=== PATIENT | female | born 1960 | race Caucasian/White ===

== ENCOUNTER 2019-11-07 13:53 | Emergency (ER) | payer OTHER ==
[~2019-11-07] VITALS: Ht 165.1 cm; Wt 77.1 kg
[2019-11-07] MEDS ORDERED: DEXAMETHASONE SOD PHOSPHATE 4 MG INJ IV ONE (14:30)
[2019-11-07] MEDS ORDERED: IV NORMAL SALINE 1000 ML BAG IV ONE (14:30)
[2019-11-07] MEDS ORDERED: KETOROLAC TROMETHAMINE 30 MG INJ IVP ONE (14:30)
[2019-11-07] MEDS ORDERED: ACETAMINOPHEN ES 500 MG TABLET PO ONE (14:30)
[2019-11-07] MEDS ORDERED: KETOROLAC TROMETHAMINE 30 MG INJ ONE (14:35)
[2019-11-07] MEDS ORDERED: ACETAMINOPHEN ES 500 MG TABLET ONE (14:35)
[2019-11-07] MEDS ORDERED: DEXAMETHASONE SOD PHOSPHATE 10 MG INJ ONE (14:36)
[2019-11-07 14:42] LABS: *BILIRUBIN,URIN NEGATIVE (NEGATIVE); *BLOOD, URINE NEGATIVE (NEGATIVE); *CLARITY,URINE CLEAR (CLEAR); *COLOR,URINE YELLOW (YELLOW); *KETONES,URINE NEGATIVE (NEGATIVE); *UROBILINOGEN,URINE 0.2 E.U./dl (NORMAL); LEUKOCYTE ESTERASE ,URINE NEGATIVE (NEGATIVE); NITRITE, URINE NEGATIVE (NEGATIVE); PH,URINE 5.5 (5.0-8.0); UGLUCOSE NEGATIVE (NEGATIVE)
--- NOTE | 2019-11-07 15:12 | NUR ---
Patient discharged to home in stable condition. Written and verbal after care instructions given. Patient verbalizes understanding of instructions. Stressed follow up or return to ER for worsening s/s.pt says her pain down to toleralable level.pt walks in steady gait.
[2019-11-07 15:13] VITALS: BP 129/81
== END 2019-11-07 15:14 | disposition home or self-care (01) ==
LOC: ER 13:53
DX: S39.012A Strain of muscle, fascia and tendon of lower back, initial encounter (principal); X50.1XXA Overexertion from prolonged static or awkward postures, initial encounter; Y93.89 Activity, other specified; Y92.239 Unspecified place in hospital as the place of occurrence of the external cause; Y99.0 Civilian activity done for income or pay; M51.26 Other intervertebral disc displacement, lumbar region; M51.37 Other intervertebral disc degeneration, lumbosacral region
CPT/HCPCS: 72100; 81001; 96374; 96375; 99284; J1100; J1885; A4663; A9150; J7030

== ENCOUNTER 2021-03-23 17:15 | Emergency (ER) | payer BC, OTHER ==
[~2021-03-23] VITALS: Ht 165.1 cm; Wt 77.1 kg
[2021-03-23] MEDS ORDERED: IV NORMAL SALINE 100 ML BAG IV ONE (17:30)
[2021-03-23] MEDS ORDERED: ONDANSETRON 4 MG/2 ML VIAL IV ONE (17:30)
[2021-03-23] MEDS ORDERED: MECLIZINE HCL 25 MG TABLET PO ONE (17:30)
[2021-03-23 17:37] LABS: MEAN CORPUSCULAR VOLUME 91.7 fL (75.5-95.3); PLATELET COUNT (AUTO) 296 K/uL (179-408)
[2021-03-23 17:43] LABS: CREATININE 0.7 mg/dL (0.6-1.3); POTASSIUM 3.8 mmol/L (3.5-5.1)
[2021-03-23 17:54] LABS: BILIRUBIN,TOTAL 0.3 mg/dL (0.2-1.0); TOTAL PROTEIN, SERUM 7.8 g/dL (6.4-8.2)
--- NOTE | 2021-03-23 17:55 | NUR ---
Pt taken to CT
[2021-03-23] MEDS ORDERED: ONDANSETRON 4 MG/2 ML VIAL ONE (17:58)
[2021-03-23] MEDS ORDERED: MECLIZINE HCL 25 MG TABLET ONE (17:58)
[2021-03-23] MEDS ORDERED: MECL-159 PO (18:44)
[2021-03-23] MEDS ORDERED: METOCLOPRAMIDE HCL 10 MG/2 ML VIAL ONE (18:44)
[2021-03-23] MEDS ORDERED: METOCLOPRAMIDE HCL 10 MG/2 ML VIAL IV ONE (18:45)
--- NOTE | 2021-03-23 19:32 | NUR ---
pt a/o denies pain, sob or dizziness.
[2021-03-23 20:05] VITALS: BP 118/71
== END 2021-03-23 20:06 | disposition home or self-care (01) ==
LOC: ER 17:17
DX: H81.10 Benign paroxysmal vertigo, unspecified ear (principal); E78.5 Hyperlipidemia, unspecified; R94.31 Abnormal electrocardiogram [ECG] [EKG]
CPT/HCPCS: 36415; 70450; 71045; 80053; 83690; 84484; 85025; 93005; 96374; 96375; 99285; J2405; J2765; 70030-TC; A4663; J7030; J8597

== ENCOUNTER 2025-01-09 07:06 | Day surgery (SDC) | payer BC, OTHER ==
[~2025-01-09 07:06] MED LIST: MECL-159 PO
[2025-01-09 08:19] LABS: PLATELET COUNT (AUTO) 300 K/uL (179-408); RED BLOOD CELL COUNT(AUTO) 4.77 MIL/uL (3.63-4.92); RED CELL DISTRIBUTION WIDTH 13.3 % (12.3-17.7); WHITE BLOOD COUNT (AUTO) 7.6 K/uL (3.8-11.8)
[2025-01-09] MEDS ORDERED: LIDOCAINE-MPF 2% 5 ML VIAL ONE (08:19)
[2025-01-09] MEDS ORDERED: PROPOFOL 200 MG/20 ML BOTTLE ONE (08:19)
[2025-01-09 08:33] LABS: *BLOOD, URINE 3+ (NEGATIVE); *CLARITY,URINE CLEAR (CLEAR); *COLOR,URINE YELLOW (YELLOW); *KETONES,URINE 2+ (NEGATIVE); *PROTEIN,URINE 2+ (NEGATIVE); *UROBILINOGEN,URINE 0.2 E.U./dl (NORMAL); LEUKOCYTE ESTERASE ,URINE NEGATIVE (NEGATIVE); NITRITE, URINE NEGATIVE (NEGATIVE); UGLUCOSE NEGATIVE (NEGATIVE)
[2025-01-09 08:37] LABS: CREATININE 0.7 mg/dL (0.6-1.3); SODIUM SERUM 137.0 mmol/L (136-145); UREA NITROGEN, BLOOD 13.0 mg/dL (7-18)
[2025-01-09 08:43] LABS: *BILIRUBIN,URIN 2+ (NEGATIVE); ASPARTATE AMINOTRANSFERASE 30.0 U/L (15-37); TOTAL PROTEIN, SERUM 7.8 g/dL (6.4-8.2)
[2025-01-09 09:44] LABS: SQUAMOUS EPITHELIAL CELL,UR FEW /HPF (NONE SEEN)
[2025-01-09 10:06] VITALS: BP 114/64; TEMP 98.3
== END 2025-01-09 10:22 | disposition home or self-care (01) ==
LOC: DS 07:06
PROVIDERS: ATTEND Internal Medicine Gastroenterology
DX: Z12.11 Encounter for screening for malignant neoplasm of colon (principal); K21.00 Gastro-esophageal reflux disease with esophagitis, without bleeding; R10.13 Epigastric pain; K64.4 Residual hemorrhoidal skin tags; K64.8 Other hemorrhoids; K29.70 Gastritis, unspecified, without bleeding; E78.00 Pure hypercholesterolemia, unspecified; M19.90 Unspecified osteoarthritis, unspecified site; Z79.899 Other long term (current) drug therapy; Z98.890 Other specified postprocedural states
CPT/HCPCS: 36415; 71045; 85025; 85610; 85730; 88313-TC; 88342; A4663; J3490; J7120

== ENCOUNTER 2025-02-01 01:03 | Inpatient (IN) | payer BC, OTHER ==
[~2025-02-01] VITALS: Ht 165.1 cm; Wt 82.2 kg
[2025-02-01] MEDS ORDERED: KETOROLAC TROMETHAMINE 30 MG INJ ONE (01:24)
[2025-02-01] MEDS ORDERED: ONDANSETRON 4 MG/2 ML VIAL ONE (01:24)
[2025-02-01] MEDS: KETOROLAC TROMETHAMINE 30 MG INJ IVP ONE (01:28)
[2025-02-01] MEDS: ONDANSETRON 4 MG/2 ML VIAL IV ONE (01:28)
[2025-02-01] MEDS ORDERED: MORPHINE SULFATE 4 MG/1 ML DISP.SYRIN ONE (01:29)
[2025-02-01] MEDS: MORPHINE SULFATE 4 MG/1 ML DISP.SYRIN IV ONE (01:33)
[2025-02-01 01:34] LABS: PLATELET COUNT (AUTO) 327 K/uL (179-408); RED BLOOD CELL COUNT(AUTO) 4.49 MIL/uL (3.63-4.92); RED CELL DISTRIBUTION WIDTH 13.2 % (12.3-17.7); WHITE BLOOD COUNT (AUTO) 7.0 K/uL (3.8-11.8)
[2025-02-01 01:38] LABS: CREATININE 0.7 mg/dL (0.6-1.3); SODIUM SERUM 141.0 mmol/L (136-145); UREA NITROGEN, BLOOD 24.0 mg/dL (7-18)
[2025-02-01 01:38] LABS: *BILIRUBIN,URIN NEGATIVE (NEGATIVE); *BLOOD, URINE 3+ (NEGATIVE); *CLARITY,URINE SLIGHTLY CLOUDY (CLEAR); *COLOR,URINE YELLOW (YELLOW); *KETONES,URINE NEGATIVE (NEGATIVE); *PROTEIN,URINE 1+ (NEGATIVE); *UROBILINOGEN,URINE 0.2 E.U./dl (NORMAL); LEUKOCYTE ESTERASE ,URINE TRACE (NEGATIVE); NITRITE, URINE NEGATIVE (NEGATIVE); UGLUCOSE NEGATIVE (NEGATIVE)
[2025-02-01 01:44] LABS: ASPARTATE AMINOTRANSFERASE 24.0 U/L (15-37); TOTAL PROTEIN, SERUM 7.5 g/dL (6.4-8.2)
[2025-02-01 02:08] LABS: SQUAMOUS EPITHELIAL CELL,UR MODERATE /HPF (NONE SEEN)
[2025-02-01] MEDS ORDERED: ATOR10TA PO (03:05)
[2025-02-01] MEDS ORDERED: CEFTRIAXONE /D5W 50ML IVPB **ER PYXIS IV ONE ×2 (03:15→05:38)
[2025-02-01] MEDS: IV NORMAL SALINE 500 ML IV ONE (03:22)
[2025-02-01 03:23] VITALS: BP 111/61
[2025-02-01] MEDS: CEFTRIAXONE 500 MG VIAL IV ONE (03:23)
[2025-02-01] MEDS ORDERED: REMEDY ESSENTIAL ZINC PASTE 113 GM TP PRN (03:45)
[2025-02-01] MEDS ORDERED: MORPHINE SULFATE 4 MG/1 ML DISP.SYRIN IV PRN (03:45)
[2025-02-01] MEDS ORDERED: TEMAZEPAM 15 MG CAPSULE PO PRN (03:45)
[2025-02-01] MEDS ORDERED: ACETAMINOPHEN 325 MG TABLET PO PRN (03:45)
[2025-02-01] MEDS ORDERED: HYDROCODONE/APAP 10-325 MG TABLET PO PRN (03:45)
[2025-02-01] MEDS ORDERED: ONDANSETRON 4 MG/2 ML VIAL IV PRN (03:45)
[2025-02-01] MEDS ORDERED: MAGNESIUM HYDROXIDE 30 ML LIQUID UDC PO PRN (03:45)
[2025-02-01 04:00] VITALS: BP 124/67; TEMP 98.3; O2SAT 93
[2025-02-01] MEDS: IV NS 1000 ML 1,000 ML IV PRN (04:32)
[2025-02-01] MEDS: PANTOPRAZOLE SODIUM 40 MG TABLET.DR PO SCH (06:45)
[2025-02-01] MEDS: TAMSULOSIN HCL 0.4 MG CAP.SR.24H PO SCH (08:50)
[2025-02-01] MEDS ORDERED: ROSU10TA2 PO (10:14)
[2025-02-01 12:00] VITALS: BP 104/62; TEMP 97.9; O2SAT 94
[2025-02-01 16:19] VITALS: BP 109/56; TEMP 97.6; O2SAT 96
[2025-02-01 19:35] VITALS: BP 101/58; TEMP 99; O2SAT 94
[2025-02-02 05:40] VITALS: BP 122/48; TEMP 97.7; O2SAT 97
[2025-02-02 06:59] LABS: PLATELET COUNT (AUTO) 252 K/uL (179-408); RED BLOOD CELL COUNT(AUTO) 3.91 MIL/uL (3.63-4.92); RED CELL DISTRIBUTION WIDTH 13.1 % (12.3-17.7); WHITE BLOOD COUNT (AUTO) 4.3 K/uL (3.8-11.8)
[2025-02-02 07:15] LABS: CREATININE 0.5 mg/dL (0.6-1.3); SODIUM SERUM 141.0 mmol/L (136-145); UREA NITROGEN, BLOOD 11.0 mg/dL (7-18)
[2025-02-02 12:00] VITALS: BP 116/56; TEMP 98.2; O2SAT 97
[2025-02-02] MEDS ORDERED: KETOROLAC TROMETHAMINE 30 MG INJ IVP PRN (12:45)
[2025-02-02 16:00] VITALS: BP 118/65; TEMP 98.4; O2SAT 97
[2025-02-02] MEDS ORDERED: CIPR-262 PO (16:06)
[2025-02-02] MEDS ORDERED: TAMS-3 PO (16:06)
[2025-02-02] MEDS ORDERED: TAMSULOSIN HCL 0.4 MG CAP.SR.24H PO SCH (21:00)
== END 2025-02-02 18:00 | disposition home or self-care (01) | DRG 690 ==
LOC: ER 01:11 → MEDSURG3 03:50
PROVIDERS: ADMIT Nurse Practitioner Acute Care; ATTEND Internal Medicine
DX: N13.6 Pyonephrosis (principal); E78.5 Hyperlipidemia, unspecified; Z79.899 Other long term (current) drug therapy; M15.9 Polyosteoarthritis, unspecified; R42 Dizziness and giddiness
CPT/HCPCS: 36415; 74018; 83690; 83735; 84100; 84443; 85025; 87086; G0378; J0696; J1885; J2270; J2405; J7040